=== PATIENT | female | born 1955 | race African-American/Black ===

== ENCOUNTER 2017-10-20 20:34 | Emergency (ER) | payer OTHER ==
[2017-10-20] MEDS ORDERED: Ketorolac Tromethamine 30 MG/ML VIAL ONE (21:38)
[2017-10-20] MEDS ORDERED: Adacel (T-DAP) 0.5 ML VIAL ONE (21:39)
--- NOTE | 2017-10-20 21:56 | CT ---
CERVICAL SPINE CT WITHOUT IV CONTRAST: 10/20/17 HISTORY: 62-year-old female with history of neck pain following trauma. No evidence for acute fracture or facet dislocation. Generalized spondylosis with some variable sever ity up to mild to moderate canal, lateral recess, and foraminal stenosis. IMPRESSION: No fracture or dislocation. Cervical spondylosis. POS: [facility]
--- NOTE | 2017-10-20 22:02 | CT ---
THORACIC SPINE CT SCAN WITHOUT IV CONTRAST 10/20/17 HISTORY: 62-year-old female with thoracic spine pain following an injury from trauma. There are some generaliz ed changes of spondylosis. There are multiple benign bony hemangiomas within several thoracic vertebr al bodies. No acute fracture or dislocation. IMPRESSION: No fracture or dislocation. Minimal thoracic spine spondylosis. POS: [facility]
--- NOTE | 2017-10-20 22:05 | CT ---
LUMBAR SPINE CT SCAN WITHOUT IV CONTRAST: 10/20/17 HISTORY: 62-year-old female with history of low back pain following an injury from trauma. No evidence for acute fracture or dislocation. There are some incidental multiple vertebral body bony hemangiomas. There is a large incompletely visualized pelvic mass with scattered calcifications, ove rall size approximates 8.5 x 9.5 cm most likely representing a markedly enlarged fibroid uterus. IMPRESSION: No acute lumbar spine fracture or dislocation. Probably markedly enlarged fibroid uterus. Review of a n old exam from 08/31/16 demonstrated a large fibroid uterus back at that time as well. POS: [facility]
== END 2017-10-20 22:38 | disposition home or self-care (01) ==
LOC: NAV ERS 20:34
DX: S16.1XXA Strain of muscle, fascia and tendon at neck level, initial encounter (principal); S39.012A Strain of muscle, fascia and tendon of lower back, initial encounter; S29.012A Strain of muscle and tendon of back wall of thorax, initial encounter; I11.0 Hypertensive heart disease with heart failure; I50.9 Heart failure, unspecified; Z85.3 Personal history of malignant neoplasm of breast; Z85.038 Personal history of other malignant neoplasm of large intestine; Z79.84 Long term (current) use of oral hypoglycemic drugs; Z79.899 Other long term (current) drug therapy; V89.2XXA Person injured in unspecified motor-vehicle accident, traffic, initial encounter; W22.10XA Striking against or struck by unspecified automobile airbag, initial encounter
CPT/HCPCS: 72125; 72128; 72131; 90715; 96372; J1885

== ENCOUNTER 2017-12-28 19:41 | Emergency (ER) | payer OTHER ==
--- NOTE | 2017-12-28 20:29 | RAD ---
FRONTAL RADIOGRAPH CHEST: 12/28/17 COMPARISON: 04/29/08. HISTORY: Productive cough. FINDINGS: Heart and mediastinal contours are grossly unremarkable. No pneumothorax or pleural fluid. No focal c onsolidation or alveolar edema. The left lung apex is not completely imaged. IMPRESSION: No acute findings. POS: [facility]
== END 2017-12-28 21:22 | disposition left against medical advice (07) ==
LOC: NAV ERS 19:41
DX: J20.9 Acute bronchitis, unspecified (principal); I11.0 Hypertensive heart disease with heart failure; I50.9 Heart failure, unspecified; Z79.899 Other long term (current) drug therapy
CPT/HCPCS: 71045; 93005

== ENCOUNTER 2020-09-05 01:04 | Emergency (ER) | payer OTHER ==
[2020-09-05] MEDS ORDERED: Ondansetron PF 4 MG/2 ML Vial ONE ×2 (01:44→02:38)
[2020-09-05] MEDS ORDERED: Ondansetron ODT 4 MG TAB ONE (01:44)
[2020-09-05] MEDS ORDERED: Meclizine HCl 25 MG TAB ONE (01:51)
[2020-09-05] MEDS ORDERED: Sodium Chloride 0.9% 500 ML ONE (01:53)
[2020-09-05 01:56] LABS: #Basophils 0.1 thou/uL (0.0-0.2); #Eosinphils 0.1 thou/uL (0.0-0.7); #Lymphocytes 3.4 thou/uL (1.20-3.40); #Monocytes 0.4 thou/uL (0.11-0.59); #Neutrophils 3.3 thou/uL (1.40-6.50); %Basophils 1.8 % (0.0-1.0); %Eosinophils 1.1 % (0.0-10.0); %Lymphocytes 46.1 % (21.0-51.0); %Monocytes 5.3 % (0.0-10.0); %Neutrophils 45.7 % (42.0-75.0); Hemoglobin 11.4 g/dL (12.0-16.0); Mean Corpuscular HGB CONC 32.6 g/dL (32.0-36.0); Mean Corpuscular Hemoglobin 28.6 pg (27.0-31.0); Mean Corpuscular Volume 87.8 fL (78.0-98.0); Mean Platelet Volume 7.4 fL (7.4-10.4); Platelet Count 374 thou/uL (130-400); RBC Distribution Width 12.2 % (11.5-14.5); Red Blood Cell (RBC) Count 3.99 mill/uL (4.20-5.40); White Blood Cell (WBC) Count 7.3 thou/uL (4.8-10.8)
[2020-09-05 02:11] LABS: ALT (SGPT) 13 U/L (8-55); AST (SGOT) 20 U/L (5-34); Alkaline Phosphatase 87 U/L (40-110); Anion Gap 17 mmol/L (10-20); BUN (Urea Nitrogen) 27 mg/dL (9.8-20.1); Bilirubin, Total 0.4 mg/dL (0.2-1.2); Calc. Creatinine Clearance 0 mL/min (70-130); Calcium 9.1 mg/dL (7.8-10.44); Carbon Dioxide 22 mmol/L (23-31); Chloride 104 mmol/L (98-107); Globulin 4.3 g/dL (2.4-3.5); Glucose 192 mg/dL (80-115); Potassium 4.3 mmol/L (3.5-5.1); Protein, Total 8.3 g/dL (5.8-8.1); Sodium 139 mmol/L (136-145)
[2020-09-05 02:17] LABS: Bilirubin Negative (Negative); Blood, Urine Negative (Negative); Clarity Clear (Clear); Glucose, Urine (Dipstick) Negative (Negative); Ketone, Urine Negative (Negative); Leukocyte Trace (Negative); Nitrite Negative (Negative); Protein, Urine (Dipstick) Negative (Neg-Trace); Urobilinogen 0.2 mg/dL (Less than 2)
[2020-09-05 02:20] LABS: Bacteria/HPF None Seen HPF (None Seen); RBC/HPF None Seen HPF (0-3); Squamous Epithelial 0-3 HPF (0-3); WBC/HPF 0-3 HPF (0-3)
== END 2020-09-05 02:30 | disposition home or self-care (01) ==
LOC: NAV ERS 01:04
DX: H81.391 Other peripheral vertigo, right ear (principal); R11.2 Nausea with vomiting, unspecified; R19.7 Diarrhea, unspecified; I11.0 Hypertensive heart disease with heart failure; I50.9 Heart failure, unspecified; Z79.82 Long term (current) use of aspirin; Z79.899 Other long term (current) drug therapy
CPT/HCPCS: 70450; 80053; 81003; 81015; 84484; 85025; 93005; 96374; J2405; J7030; Q0162

== ENCOUNTER 2021-12-30 10:39 | Emergency (ER) | payer BC, MEDICARE, OTHER | END 2021-12-30 11:12 | disposition home or self-care (01) | LOC: NAV ERS 10:39 | DX: T67.5XXA Heat exhaustion, unspecified, initial encounter (principal); E11.9 Type 2 diabetes mellitus without complications; I11.0 Hypertensive heart disease with heart failure; I50.9 Heart failure, unspecified; X30.XXXA Exposure to excessive natural heat, initial encounter; Y93.89 Activity, other specified; Y92.149 Unspecified place in prison as the place of occurrence of the external cause; Z85.3 Personal history of malignant neoplasm of breast; Z85.038 Personal history of other malignant neoplasm of large intestine | CPT/HCPCS: 36416; 99284 ==